=== PATIENT | male | born 1960 | race Caucasian/White ===

== ENCOUNTER → 2016-09-27 | Outpatient (CLI) | payer BC ==
[2016-09-27 11:04] LABS: ALT/SGPT 26 U/L (12-78); AST/SGOT 14 U/L (15-37); BLOOD UREA NITROGEN 20 mg/dl (7-18); BUN/CREATININE RATIO 20.7 (10-20); CALCIUM 8.6 mg/dl (8.5-10.1); CARBON DIOXIDE 31 mmol/L (21-32); CHLORIDE 107 mmol/L (98-107); CREATININE 0.98 mg/dl (0.60-1.40); GLUCOSE 96 mg/dl (70-99); POTASSIUM 4.3 mmol/L (3.5-5.1); SODIUM 141 mmol/L (136-145)
[2016-09-27 11:11] LABS: ALB/GLOB RATIO 1.1 (0.9-2); ALKALINE PHOSPHATASE 71 U/L (45-117); CHOLESTEROL 250 mg/dl (0-200); HDL CHOLESTEROL 50 mg/dl; LDL CHOLESTEROL CALCULATED 179 mg/dl; TRIGLYCERIDES 107 mg/dl (0-150); VERY LOW DENSITY LIPOPROT CALC 21 mg/dl
== END | disposition home or self-care (01) ==
LOC: C.LABBC 08:50
PROVIDERS: ATTEND Internal Medicine
DX: Z00.00 Encounter for general adult medical examination without abnormal findings (principal); Z11.59 Encounter for screening for other viral diseases

== ENCOUNTER → 2016-12-05 | Outpatient (CLI) | payer BC | END | disposition home or self-care (01) | LOC: C.PATHSPEC 17:07 | PROVIDERS: ATTEND Plastic Surgery | DX: D22.62 Melanocytic nevi of left upper limb, including shoulder (principal) ==

== ENCOUNTER → 2016-12-16 | Outpatient (CLI) | payer BC ==
[2016-12-16 10:01] LABS: ALT/SGPT 21 U/L (12-78); BLOOD UREA NITROGEN 19 mg/dl (7-18); BUN/CREATININE RATIO 20.9 (10-20); CALCIUM 8.8 mg/dl (8.5-10.1); CARBON DIOXIDE 31 mmol/L (21-32); CHLORIDE 106 mmol/L (98-107); CHOLESTEROL 150 mg/dl (0-200); GLUCOSE 97 mg/dl (70-99); POTASSIUM 4.3 mmol/L (3.5-5.1); SODIUM 142 mmol/L (136-145)
[2016-12-16 10:04] LABS: ALB/GLOB RATIO 1.1 (0.9-2); ALKALINE PHOSPHATASE 72 U/L (45-117); AST/SGOT 15 U/L (15-37); CHOLESTEROL/HDL RATIO 2.7; HDL CHOLESTEROL 55 mg/dl; LDL CHOLESTEROL CALCULATED 77 mg/dl; TRIGLYCERIDES 91 mg/dl (0-150); VERY LOW DENSITY LIPOPROT CALC 18 mg/dl
== END | disposition home or self-care (01) ==
LOC: C.LAB 08:24
PROVIDERS: ATTEND Internal Medicine
DX: E78.5 Hyperlipidemia, unspecified (principal)

== ENCOUNTER → 2017-03-19 | Outpatient (CLI) | payer BC ==
--- NOTE | 2017-03-19 07:30 | DIAGNOSTIC IMAGING REPORT ---
MRI CERVICAL WITHOUT CONTRAST CLINICAL HISTORY: Neck pain with left arm radiculopathy TECHNIQUE: Sagittal and axial T1, T2 and STIR images were obtained. COMPARISON STUDY: No previous studies for comparison. There are no suspicious areas of marrow replacement. No intrinsic cervical cord lesions are visualized. C2-3: There is no evidence of disc bulge or focal herniation. There is no spinal or foraminal stenosis. C3-4: There is no evidence of disc bulge or focal herniation. There is no spinal or foraminal stenosis. C4-5: There are no disc bulges or focal herniations. There is no spinal or foraminal stenosis. C5-6 :There are no disc bulges or focal herniations. There is no spinal or foraminal stenosis. C6-7: There is a small left foraminal disc protrusion with left-sided foraminal narrowing. C7-T1: There is no evidence of disc bulge or focal herniation. There is no evidence of spinal or foraminal stenosis. IMPRESSION:Small left foraminal disc protrusion at the C6-7 level with secondary left-sided foraminal narrowing Electronically signed by: Alex Rangel M.D. 03/19/2017 7:29 AM Dictated Date/Time: 03/19/2017 7:25 AM
== END | disposition home or self-care (01) ==
LOC: C.MRI 06:19
PROVIDERS: ATTEND Orthopaedic Surgery Sports Medicine
DX: M54.12 Radiculopathy, cervical region (principal)

== ENCOUNTER → 2017-05-17 | Outpatient (CLI) | payer BC ==
[~2017-05-17] MED LIST: GADAVIST IV PRN
--- NOTE | 2017-05-17 14:41 | DIAGNOSTIC IMAGING REPORT ---
MRI OF THE BRACHIAL PLEXUS CLINICAL HISTORY: Left-sided brachial plexopathy. COMPARISON STUDY: No priors. TECHNIQUE: MRI of the brachial plexus is performed utilizing various T1 and T2-weighted sequences in the axial, sagittal, and coronal planes. Contrast-enhanced sequences are acquired following the IV administration of 7 mL of Gadavist. FINDINGS: The brachial plexus is normal as visualized and symmetric bilaterally. No abnormal enhancement or enhancing mass lesion is identified. The overlying soft tissues are normal in appearance. The lung parenchyma is grossly clear but not well assessed. There is no evidence of large disc herniation in the cervical spine. The cervical spinal cord is normal as imaged. The regional musculature is normal and symmetric. No cervical adenopathy is suggested. IMPRESSION: Unremarkable MRI of the brachial plexus. Dictated: 05/17/2017 1:27 PM Transcribed: 05/17/2017 2:41 PM [email or web address] Electronically signed by: Wojciech Rios M.D. 05/17/2017 3:07 PM Dictated Date/Time: 05/17/2017 1:27 PM
== END | disposition home or self-care (01) ==
LOC: C.MRI 12:27
PROVIDERS: ATTEND Psychiatry & Neurology Neurology
DX: G54.0 Brachial plexus disorders (principal)

== ENCOUNTER → 2017-06-03 | Outpatient (CLI) | payer BC | END | disposition home or self-care (01) | LOC: C.LAB1850 08:11 | PROVIDERS: ATTEND Psychiatry & Neurology Neurology | DX: G54.0 Brachial plexus disorders (principal) ==